=== PATIENT | male | born 1995 | race Caucasian/White ===

== ENCOUNTER 2022-06-04 15:34 | Outpatient (CLI) | payer OTHER | END 2022-06-04 15:35 | disposition home or self-care (01) | LOC: BICCT 15:34 | PROVIDERS: ATTEND Family Medicine | DX: S06.0X0A Concussion without loss of consciousness, initial encounter (principal) | CPT/HCPCS: 70450 ==

== ENCOUNTER 2022-06-17 09:09 | Outpatient (CLI) | payer OTHER | END 2022-06-17 09:10 | disposition home or self-care (01) | LOC: SCSMRI 09:09 | PROVIDERS: ATTEND Family Medicine | DX: S06.0X0A Concussion without loss of consciousness, initial encounter (principal) | CPT/HCPCS: 70553 ==